=== PATIENT | male | born 1995 | race African-American/Black ===

== ENCOUNTER 2025-09-22 02:11 | Emergency (ER) | payer SELFPAY ==
[~2025-09-22] VITALS: Ht 182.9 cm; Wt 95.0 kg
[2025-09-22 02:12] VITALS: O2SAT 100
[2025-09-22] MEDS: KETOROLAC 15MG/ML VIAL IM ONE (04:21)
[2025-09-22] MEDS ORDERED: LIDO-53 TP (04:42)
[2025-09-22] MEDS ORDERED: NAPR-1176 MT (04:42)
[2025-09-22 04:57] VITALS: BP 110/65; PULSE 87; RESP 16; TEMP 36.9; O2SAT 100
== END 2025-09-22 04:57 | disposition home or self-care (01) ==
LOC: ER 02:11
DX: S00.81XA Abrasion of other part of head, initial encounter (principal); Y04.0XXA Assault by unarmed brawl or fight, initial encounter; Y93.89 Activity, other specified; Y92.89 Other specified places as the place of occurrence of the external cause; Y99.8 Other external cause status
CPT/HCPCS: 99283; 96372; J1885

== ENCOUNTER 2025-09-22 05:07 | Emergency (ER) | payer OTHER ==
[~2025-09-22] VITALS: Ht 182.9 cm; Wt 94.3 kg
[~2025-09-22 05:07] MED LIST: LIDO-53 TP; NAPR-1176 MT
[2025-09-22 05:13] VITALS: O2SAT 99
[2025-09-22] MEDS: KETOROLAC 30MG/ML VIAL IM ONE (06:54)
[2025-09-22] MEDS: HYDROCODONE/ACETAMINOPHEN 5/325MG TABLET PO ONE (06:54)
[2025-09-22 07:58] VITALS: BP 128/76; PULSE 90; RESP 18; TEMP 36.9; O2SAT 100
== END 2025-09-22 07:51 | disposition home or self-care (01) ==
LOC: ER 05:07
DX: S00.83XA Contusion of other part of head, initial encounter (principal); Y04.0XXA Assault by unarmed brawl or fight, initial encounter; Y93.89 Activity, other specified; Y92.89 Other specified places as the place of occurrence of the external cause; Y99.8 Other external cause status
CPT/HCPCS: 99285; 70486; 96372; J1885